=== PATIENT | male | born 1945 | race Caucasian/White ===

== ENCOUNTER 2021-12-22 11:15 | Outpatient (RCR) | payer MEDICARE, BC, SELFPAY | END 2022-06-10 15:54 | disposition home or self-care (01) | PROVIDERS: PCP Family Medicine; Visit Provider Physician Assistant Surgical | DX: M25.512 Pain in left shoulder (principal); Z51.89 Encounter for other specified aftercare | CPT/HCPCS: 97032; 97110 ==

== ENCOUNTER 2022-03-30 12:33 | Outpatient (CLI) | payer MEDICARE, BC, SELFPAY ==
[2022-03-30 22:32] LABS: Albumin* 4.7 g/dL (3.3-5.0); Chloride* 103 mmol/L (96-114); Potassium* 4.3 mmol/L (3.6-5.1); Sodium* 137 mmol/L (135-149)
[2022-03-30 22:35] LABS: Blood Urea Nitrogen* 17 mg/dL (7-30); Carbon Dioxide* 22 mmol/L (20-32); Estimated Glomerular Filt Rate 78 ml/min
[2022-03-30 22:36] LABS: Glucose* 99 mg/dL (60-115); Phosphorus* 3.6 mg/dL (2.5-4.5); Uric Acid* 4.9 mg/dL (2.2-8.4)
[2022-03-30 22:40] LABS: Albumin* 4.5 g/dL (3.3-5.0); Chloride* 103 mmol/L (96-114)
[2022-03-30 22:41] LABS: Potassium* 4.3 mmol/L (3.6-5.1); Sodium* 138 mmol/L (135-149)
[2022-03-30 22:43] LABS: Carbon Dioxide* 27 mmol/L (20-32); Cholesterol* 209 mg/dL (90-199); Creatinine* 0.9 mg/dL (0.5-1.5); Estimated Glomerular Filt Rate 89 ml/min; Total Protein* 7.4 g/dL (6.0-8.3)
[2022-03-30 22:44] LABS: Alanine Aminotransferase* 26 U/L (4-50); Alkaline Phosphatase* 63 U/L (40-150); Aspartate Amino Transferase* 39 U/L (12-35); Blood Urea Nitrogen* 18 mg/dL (7-30); Calcium* 9.6 mg/dL (8.4-10.6); Glucose* 98 mg/dL (60-115); Triglycerides* 121 mg/dL (40-149)
[2022-03-30 22:45] LABS: HDL Cholesterol* 52 mg/dL (>=40); LDL Cholesterol Calculated 133 mg/dL (<100)
[2022-03-30 23:15] LABS: PSA Screen* 0.38 ng/mL (0.10-4.00)
[2022-03-31 00:20] LABS: Creatinine Urine 211.3 mg/dL
[2022-03-31 00:23] LABS: Microalbumin Creatinine Ratio 0 mg/g (0-30); Microalbumin Urine 1 mg/dL
[2022-03-31 04:23] LABS: PTH Intact* 41 pg/mL (15-65)
== END 2022-03-30 12:34 | disposition home or self-care (01) ==
PROVIDERS: Internal Medicine Nephrology; PCP Family Medicine; Visit Provider Family Medicine
DX: Z00.00 Encounter for general adult medical examination without abnormal findings (principal); E03.8 Other specified hypothyroidism; E78.5 Hyperlipidemia, unspecified; N20.9 Urinary calculus, unspecified; Z12.5 Encounter for screening for malignant neoplasm of prostate
CPT/HCPCS: 80053; 80061; 80069; 82043; 82310; 82570; 83970; 84153; 84443; 84550; 87086

== ENCOUNTER 2024-01-28 16:44 | Outpatient (CLI) | payer MEDICARE, BC, SELFPAY | END 2024-01-28 16:45 | disposition home or self-care (01) | LOC: NFLDREF 01-30 13:00 | PROVIDERS: PCP Family Medicine; Referring Provider Family Medicine; Visit Provider Nurse Practitioner Family | DX: R10.9 Unspecified abdominal pain (principal) | CPT/HCPCS: 87086 ==

== ENCOUNTER 2024-02-29 07:30 | Outpatient (CLI) | payer MEDICARE, BC, SELFPAY ==
--- OUTSIDE RECORDS SUMMARY | 2024-03-08 07:26 | XMS_ITS | Continuity of Care Document ---
Author Name [facility] Organization [facility] Care Team Providers Care Feed Mill Tender Name Role Phone [facility] Unavailable Unavailable Problems Combined list of problems from Department of Defense and Veterans Affairs facilities. It does not include entries that were removed or entered in error. Problem Status Onset Date Problem Type Date of Resolution Comments Source Exposure to potentially hazardous substance ([facility] [id number]) Active 07/21/19 24 Condition Jul 21, 2023 Entered By: MARTINEZ HERNANDEZ Comment: [facility] MAT[employer]DE Documentation Initiative [facility] Alzheimer's disease Active Condition [facility] Benign Prostatic Hypertrophy without Outflow Obstruction ([facility] [id number]) Active Condition [facility] Dementia Active Condition [facility] History of calculus of kidney Active Condition [facility] Hyperlipidemia ([facility] [id number]) [facility] Low back pain [facility] Past history Active Condition Jul 30, 2021 Entered By: ADAN PHAN Comment: No smoking; FHx-pacemakersM ar 2021 Entered By: ADAN PHAN Comment: Currently work on overseas humanitarian aid in [facility] Scoliosis Active Condition [facility] Solitary nodule of lung Active Condition Jul 31, 2021 Entered By: ADAN PHAN Comment: found on coronary CT; doesn't smoke; 4mm nodule near L major fissure -> pt advised to talk to community PCP for f/u 07/2021 [facility] Diagnosis: ICD-10-CM F03.A4 Unspecified dementia, mild, with anxiety Active Diagnosis [facility] Diagnosis: ICD-10-CM Z71.84 Encounter for health counseling related to travel Active Diagnosis [facility] [place] [facility] Diagnosis: ICD-10-CM H93.13 Tinnitus, bilateral Active Diagnosis [facility] Diagnosis: ICD-10-CM E78.5 Hyperlipidemia, unspecified Active Diagnosis [facility] Diagnosis: ICD-10-CM H25.9 Unspecified age-related cataract Active Diagnosis [facility] Diagnosis: ICD-10-CM H90.3 Sensorineural hearing loss, bilateral Active Diagnosis [facility] Diagnosis: ICD-10-CM G30.9 Alzheimer's disease, unspecified Active Diagnosis [facility] Diagnosis: ICD-10-CM K30 Functional dyspepsia Active Diagnosis [facility] Diagnosis: ICD-10-CM H25.13 Age-related nuclear cataract, bilateral Active Diagnosis [facility] Diagnosis: ICD-10-CM Z23 Encounter for immunization Active Diagnosis [facility] Diagnosis: ICD-10-CM R42 Dizziness and giddiness Active Diagnosis [facility] Diagnosis: ICD-10-CM F03.90 Unsp dementia, unsp severity, without beh/psych/mood/an x Active Diagnosis [facility] Diagnosis: ICD-10-CM Z00.8 Encounter for other general examination Active Diagnosis [facility] Diagnosis: ICD-10-CM Z71.89 Other specified counseling Active Diagnosis [facility] Diagnosis: ICD-10-CM M54.59 Other low back pain Active Diagnosis [facility] Diagnosis: ICD-10-CM M25.512 Pain in left shoulder Active Diagnosis [facility] Diagnosis: ICD-10-CM H61.893 Other specified disorders of external ear, bilateral Active Diagnosis [facility] Medications Combined list of outpatient medications from Department of Defense and [facility] Affairs facilities.Medications provided include 1) outpatient medications from the last 15 months, and 2) patient-reported medications. Medication Details Route Status Patient Instructions Prescription Expires Prescription Number Last Dispense Date Ordering Provider Order Date Order Qty Source ASPIRIN 81MG TAB,EC TAKE ONE TABLET BY MOUTH EVERY DAY ORAL ACTIVE ADAN PHAN 2021 [facility] AZITHROMYCI N 250MG TAB TAKE TWO TABLETS BY MOUTH EVERY DAY NEEDED TAKE FOR SEVERE DIARRHEA WITH FEVERS, CHILLS, BODY ACHES OR LASTING MORE THAN 24 HOURS. STOP ONCE DIARRHEA STOPS. ORAL 12/15/2023 [id number] 4 LEEROY TUCKER SSE D 2023 6 [facility] AZITHROMYCI N 250MG TAB TAKE TWO TABLETS BY MOUTH EVERY DAY FOR SEVERE DIARRHEA ORAL 03/04/2023 [id number] 3 LEEROY TUCKER SSE D 2022 6 [facility] CARBOXYMETH YLCELLULOSE NA 0.5% (PF) SOLN,OPH,0. 4ML INSTILL 1 DROP IN BOTH EYES THREE TIMES A DAY FOR EYE IRRITATI ON OPHTHA LMIC ACTIVE 05/21/2024 [id number] 4 SARINA MORALES A 2023 90 [facility] COENZYME Q10 CAP/TAB TAKE BY MOUTH ORAL ACTIVE PARADISE, ADAN EVERETT 2023 [facility] DONEPEZIL HCL 10MG TAB TAKE ONE TABLET BY MOUTH EVERY DAY FOR ALZHEIME R DISEASE ORAL DISCONT INUED BY PROVIDE R 04/16/2024 [id number] 4 PARADISEADAN 2022 30 [facility] EZETIMIBE 10MG TAB TAKE ONE TABLET BY MOUTH EVERY DAY ORAL ACTIVE PARADISE, ADAN EVERETT 2021 [facility] FINASTERIDE 5MG TAB TAKE ONE TABLET BY MOUTH EVERY DAY ORAL ACTIVE PARADISE, ADANJACY EVERETT 2021 [facility] LIDOCAINE 5% PATCH APPLY 1 PATCH TOPICALL Y EVERY DAY FOR UP TO 12 HOURS FOR PAIN --MAXIMU M OF 12 HOURS ON IN A 24 HOUR PERIOD TOPICA L ACTIVE 07/29/2024 [id number] 4 PARADISE, ADAN EVERETT 2023 30 [facility] LIDOCAINE 5% PATCH APPLY 1 PATCH TOPICALL Y EVERY DAY FOR UP TO 12 HOURS FOR PAIN --MAXIMU M OF 12 HOURS ON IN A 24 HOUR PERIOD TOPICA L 03/04/2023 [id number] 3 LEEROY TUCKER D 2022 30 [facility] LOPERAMIDE HCL 2MG CAP TAKE 1-2 CAPSULES BY MOUTH FOUR TIMES A DAY NEEDED FOR MILD DIARRHEA - MAX 8 CAPSULES PER DAY ORAL 03/04/2023 [id number] 3 LEEROY TUCKER D 2022 120 [facility] MEMANTINE HCL 5MG TAB TAKE ONE TABLET BY MOUTH TWICE A DAY FOR ALZHEIME R DISEASE ([place]ACE [place]) ORAL ACTIVE 09/15/2024 [id number] 4 PARADISE, ADANJACY EVERETT 2023 180 [facility] MEMANTINE HCL 5MG TAB TAKE ONE TABLET BY MOUTH TWICE A DAY FOR ALZHEIME R DISEASE (REPLACE S [place]) ORAL DISCONT INUED (EDIT) 07/29/2024 [id number] 4 ADAN PHAN 2023 60 [facility] ROSUVASTATI N CA 40MG TAB TAKE ONE TABLET BY MOUTH EVERY DAY FOR CHOLESTE ROL ORAL ACTIVE 07/29/2024 [id number] 4 [place] EVERETT 2023 90 [facility] SCOPOLAMINE 0.33MG/24HR S PATCH APPLY 1 PATCH TOPICALL Y EVERY 3 DAYS NEEDED FOR MOTION SICKNESS TOPICA L 03/04/2023 [id number] 3 LEEROY TUCKER SSE D 2022 8 [facility] SERTRALINE HCL 25MG TAB TAKE ONE TABLET BY MOUTH EVERY DAY FOR MOOD ORAL DISCONT INUED 03/17/2024 [id number] EMILIE ADANJACY EVERETT 2022 45 [facility] Allergies, Adverse Reactions, Alerts Combined list of allergies from Department of Defense and Veterans Affairs facilities. It does not include entries that were removed or entered in error. Substance Category Reaction Severity Reaction type Status Date Reported Comments Source PISTACHIOS Propensity to adverse reactions to food (finding) active 1 [facility] TAMSULOSIN Propensity to adverse reactions to drug (finding) ANGIOEDEMA OF LIPS active 2 [facility] Immunizations Combined list of available immunizations from the Department of Defense and Veterans Affairs facilities. Immunization Series Date Given Administered By Site Reaction Lot Number CVX Code Drug Investor Relations Specialist Status Comments Source ZOSTER RECOMBINANT 2 2023 JESUS VENTURAENE LEFT DELTO ID [id number] 187 complet ed [id number] [facility] ZOSTER RECOMBINANT 1 2022 LORENZO VENTURA LEFT DELTO ID [id number] 187 complet ed [id number] [facility] COVID-19 (MODERNA), MRNA, LNP-S, PF, 50 MCG/0.5 ML (AGES 12+ YEARS) 10/05/ 2023 312 complet ed [facility] INFLUENZA, HIGH-DOSE, QUADRIVALENT 2022 TERESO AU L LEFT DELTO ID [id number] 197 complet ed [facility] IPV 2022 [place] [facility] RIGHT DELTO ID [id number] 10 complet ed [facility] TDAP 2022 [place] AU L LEFT DELTO ID [id number] 115 complet ed [facility] TYPHOID, VICPS 2022 TERES[place] AU L RIGHT DELTO ID [id number] 101 complet ed [facility] COVID-19 ([employer]), MRNA, LNP-S, BIVALENT BOOSTER, PF, 30 MCG/0.3 ML DOSE 1 2022 [place] RIGHT DELTO ID [id number] 300 complet ed [facility] INFLUENZA, HIGH-DOSE, QUADRIVALENT 2021 197 complet ed [facility] INFLUENZA, UNSPECIFIED FORMULATION 2021 88 complet ed [facility] COVID-19 ([employer]), MRNA, LNP-S, PF, 30 MCG/0.3 ML DOSE, DRHUV-SUCROSE (AGES 12+ YEARS) 1 2021 217 complet ed Lot#: [id number] Mfr: [employer], [employer] Expiratio n Date: 02/20/22 [facility] COVID-19 ([employer]), MRNA, LNP-S, PF, 30 MCG/0.3 ML DOSE 2020 208 complet ed [facility] COVID-19 ([employer]), MRNA, LNP-S, PF, 30 MCG/0.3 ML DOSE 3 2020 208 complet ed Lot#: [id number] Mfr: [employer], [employer] Expiratio n Date: 04/19/21 [facility] INFLUENZA, HIGH-DOSE, QUADRIVALENT 2020 197 complet ed [facility] INFLUENZA, UNSPECIFIED FORMULATION 2020 88 complet ed [facility] COVID-19 ([employer]), MRNA, LNP-S, PF, 30 MCG/0.3 ML DOSE 2 2020 208 complet ed PFR; [id number]; 1 [facility] COVID-19 (PFIZER), MRNA, LNP-S, PF, 30 MCG/0.3 ML DOSE 1 2020 208 complet ed PFR; [id number]; 1 [facility] INFLUENZA, HIGH-DOSE, QUADRIVALENT 2019 197 complet ed [facility] INFLUENZA, HIGH DOSE SEASONAL 2018 135 complet ed [facility] INFLUENZA, HIGH DOSE SEASONAL 2017 135 complet ed [facility] HEP B, ADULT 3 2017 43 complet ed [facility] INFLUENZA, HIGH DOSE SEASONAL 2016 135 complet ed [facility] TYPHOID, VICPS 2016 101 complet ed [facility] PNEUMOCOCCAL CONJUGATE PCV 13 2016 133 complet ed [facility] INFLUENZA, HIGH DOSE SEASONAL 2013 135 complet ed [facility] INFLUENZA, HIGH DOSE SEASONAL 2012 135 complet ed [facility] TD (ADULT), 5 LF TETANUS TOXOID, PRESERVATIVE FREE, ADSORBED 2012 113 complet ed [facility] TDAP 2012 115 complet ed per [facility] ZOSTER LIVE 2012 121 complet ed [facility] INFLUENZA, HIGH DOSE SEASONAL 2011 135 complet ed [facility] INFLUENZA, SEASONAL, INJECTABLE 2010 141 complet ed [facility] PNEUMOCOCCAL POLYSACCHARID E [id number] 2010 33 complet ed [facility] INFLUENZA, SEASONAL, INJECTABLE 2009 141 complet ed [facility] INFLUENZA, SEASONAL, INJECTABLE, PRESERVATIVE FREE 2009 140 complet ed [facility] NOVEL INFLUENZA-H1N 1-09, ALL FORMULATIONS 2009 128 complet ed [facility] TYPHOID, ORAL 2009 25 complet ed [facility] HEP B, ADULT 2 2007 43 complet ed [facility] INFLUENZA, SEASONAL, INJECTABLE 2007 141 complet ed [facility] INFLUENZA, SEASONAL, INJECTABLE 2006 141 complet ed [facility] HEP B, ADULT 2006 43 complet ed [facility] HEP A, ADULT 2 2006 52 complet ed [facility] HEP B, ADULT 1 2006 43 complet ed [facility] TDAP 2006 115 complet ed [facility] INFLUENZA, SEASONAL, INJECTABLE 2005 141 complet ed [facility] INFLUENZA, SEASONAL, INJECTABLE 2004 141 complet ed [facility] HEP A, ADULT 1 2003 52 complet ed [facility] TYPHOID, ORAL 2003 25 complet ed [facility] YELLOW FEVER 2003 37 complet ed [facility] INFLUENZA, SEASONAL, INJECTABLE 2002 141 complet ed [facility] TD (ADULT), 2 LF TETANUS TOXOID, PRESERVATIVE FREE, ADSORBED 2001 09 complet ed [facility] TD (ADULT), 2 LF TETANUS TOXOID, PRESERVATIVE FREE, ADSORBED 1990 09 complet ed [facility] Results Combined list of recent chemistry, hematology and other laboratory results from Department of Defense and Veterans Affairs, ranging from 15 months to all on record, depending upon the facility. Order Name Results Value Reference Range Date Interpretation Specimen Comments Source CBC LEUKOCYTES [#/VOLUME] IN BLOOD BY AUTOMATED COUNT 4.86 10*3/uL 4.0 - 11.0 08/26 Specimen Type: BLOOD No comment entered. Ordering Provider: ALAN PHAN Report Released Date/Time: Aug 24, 2022 08:45 PM Reporting Lab: [facility] [address] Performing Lab: [facility] [address] [facility] CBC ERYTHROCYT ES [#/VOLUME] IN BLOOD BY AUTOMATED COUNT 4.97 10*6/uL 4.6 - 6.2 08/26 Specimen Type: BLOOD No comment entered. Ordering Provider: ALAN PHAN Report Released Date/Time: Aug 24, 2022 08:45 PM Reporting Lab: [facility] [address] Performing Lab: [facility] [address] [place] [facility] CBC HEMOGLOBIN [MASS/VOLU ME] IN BLOOD 15.3 g/dL 13.5 - 17.9 08/26 Specimen Type: BLOOD No comment entered. Ordering Provider: ALAN PHAN Report Released Date/Time: Aug 24, 2022 08:45 PM Reporting Lab: [facility] [address] Performing Lab: [facility] [address] [place] [facility] CBC HEMATOCRIT [VOLUME FRACTION] OF BLOOD BY AUTOMATED COUNT 43.8 41 - 54 08/26 Specimen Type: BLOOD No comment entered. Ordering Provider: ALAN PHAN Report Released Date/Time: Aug 24, 2022 08:45 PM Reporting Lab: [facility] [phone] Performing Lab: [facility] [phone] [place] [facility] CBC MCV [ENTITIC VOLUME] BY AUTOMATED COUNT 88.1 fL 80 - 100 08/26 Specimen Type: BLOOD No comment entered. Ordering Provider: ALAN PHAN Report Released Date/Time: Aug 24, 2022 08:45 PM Reporting Lab: [facility] [address] Performing Lab: [facility] [address] [place] [facility] CBC MCH [ENTITIC MASS] BY AUTOMATED COUNT 30.8 pg 27 - 33 08/26 Specimen Type: BLOOD No comment entered. Ordering Provider: ALAN PHAN Report Released Date/Time: Aug 24, 2022 08:45 PM Reporting Lab: [facility] [address] Performing Lab: [facility] [address] [place] [facility] CBC MCHC [MASS/VOLU ME] BY AUTOMATED COUNT 34.9 g/dL 32.0 - 37.5 08/26 Specimen Type: BLOOD No comment entered. Ordering Provider: ALAN PHAN Report Released Date/Time: Aug 24, 2022 08:45 PM Reporting Lab: [facility] [address] Performing Lab: [facility] [address] [place] [facility] CBC PLATELETS [#/VOLUME] IN BLOOD BY AUTOMATED COUNT 184 10*3/uL 150 - 400 08/26 Specimen Type: BLOOD No comment entered. Ordering Provider: ALAN PHAN Report Released Date/Time: Aug 24, 2022 08:45 PM Reporting Lab: [facility] [address] Performing Lab: [facility] [address] [place] [facility] CBC PLATELET MEAN VOLUME [ENTITIC VOLUME] IN BLOOD BY AUTOMATED COUNT 10.0 fL 7.4 - 10.4 08/26 Specimen Type: BLOOD No comment entered. Ordering Provider: ALAN PHAN Report Released Date/Time: Aug 24, 2022 08:45 PM Reporting Lab: [facility] [address] Performing Lab: [facility] [address] [place] [facility] CBC ERYTHROCYT E DISTRIBUTI ON WIDTH [RATIO] BY AUTOMATED COUNT 13.0 11.5 - 14.5 08/26 Specimen Type: BLOOD No comment entered. Ordering Provider: ALAN PHAN Report Released Date/Time: Aug 24, 2022 08:45 PM Reporting Lab: [facility] [address] Performing Lab: [facility] [address] [place] [facility] CBC PLATELETS RETICULATE D/100 PLATELETS IN BLOOD BY AUTOMATED COUNT 3.6 0 - 10 08/26 Specimen Type: BLOOD No comment entered. Ordering Provider: ALAN PHAN Report Released Date/Time: Aug 24, 2022 08:45 PM Reporting Lab: [facility] [address] Performing Lab: [facility] [address] [place] [facility] BASIC METABOLI C PANEL+MG CREATININE [MASS/VOLU ME] IN SERUM OR PLASMA 1.0 mg/dL 0.7 - 1.2 08/26 Specimen Type: PLASMA No comment entered. Ordering Provider: ALAN PHAN Report Released Date/Time: Aug 24, 2022 08:45 PM Reporting Lab: [facility] [address] Performing Lab: [facility] [address] [place] [facility] BASIC METABOLI C PANEL+MG UREA NITROGEN [MASS/VOLU ME] IN SERUM OR PLASMA 15 mg/dL 8 - 26 08/26 Specimen Type: PLASMA No comment entered. Ordering Provider: ALAN PHAN Report Released Date/Time: Aug 24, 2022 08:45 PM Reporting Lab: [facility] [address] Performing Lab: [facility] [address] [place] [facility] BASIC METABOLI C PANEL+MG GLUCOSE [MASS/VOLU ME] IN SERUM OR PLASMA 101 mg/dL 70 - 100 08/26 H Specimen Type: PLASMA No comment entered. Ordering Provider: ALAN PHAN Report Released Date/Time: Aug 24, 2022 08:45 PM Reporting Lab: [facility] [address] Performing Lab: [facility] [address] [place] [facility] BASIC METABOLI C PANEL+MG SODIUM [MOLES/VOL UME] IN SERUM OR PLASMA 139 mmol/L 136 - 145 08/26 Specimen Type: PLASMA No comment entered. Ordering Provider: ALAN PHAN Report Released Date/Time: Aug 24, 2022 08:45 PM Reporting Lab: [facility] [address] Performing Lab: [facility] [address] [place] [facility] BASIC METABOLI C PANEL+MG POTASSIUM [MOLES/VOL UME] IN SERUM OR PLASMA 3.8 mmol/L 3.5 - 5.1 08/26 Specimen Type: PLASMA No comment entered. Ordering Provider: ALAN PHAN Report Released Date/Time: Aug 24, 2022 08:45 PM Reporting Lab: [facility] [address] Performing Lab: [facility] [address] [place] [facility] BASIC METABOLI C PANEL+MG CHLORIDE [MOLES/VOL UME] IN SERUM OR PLASMA 104 mmol/L 98 - 107 08/26 Specimen Type: PLASMA No comment entered. Ordering Provider: ALAN PHAN Report Released Date/Time: Aug 24, 2022 08:45 PM Reporting Lab: [facility] [address] Performing Lab: [facility] [address] [place] [facility] BASIC METABOLI C PANEL+MG CARBON DIOXIDE, TOTAL [MOLES/VOL UME] IN SERUM OR PLASMA 28 mmol/L 22 - 29 08/26 Specimen Type: PLASMA No comment entered. Ordering Provider: ALAN PHAN Report Released Date/Time: Aug 24, 2022 08:45 PM Reporting Lab: [facility] [address] Performing Lab: [facility] [address] [place] [facility] BASIC METABOLI C PANEL+MG CALCIUM [MASS/VOLU ME] IN SERUM OR PLASMA 9.3 mg/dL 8.4 - 10.2 08/26 Specimen Type: PLASMA No comment entered. Ordering Provider: ALAN PHAN Report Released Date/Time: Aug 24, 2022 08:45 PM Reporting Lab: [facility] [address] Performing Lab: [facility] [address] [place] [facility] BASIC METABOLI C PANEL+MG MAGNESIUM [MASS/VOLU ME] IN SERUM OR PLASMA 1.9 mg/dL 1.6 - 2.6 08/26 Specimen Type: PLASMA No comment entered. Ordering Provider: ALAN PHAN Report Released Date/Time: Aug 24, 2022 08:45 PM Reporting Lab: [facility] [address] Performing Lab: [facility] [address] [place] [facility] BASIC METABOLI C PANEL+MG ANION GAP IN SERUM OR PLASMA 7 mmol/L 5 - 15 08/26 Specimen Type: PLASMA No comment entered. Ordering Provider: ALAN PHAN Report Released Date/Time: Aug 24, 2022 08:45 PM Reporting Lab: [facility] [address] Performing Lab: [facility] [address] [place] [facility] BASIC METABOLI C PANEL+MG GLOMERULAR FILTRATION RATE/1.73 SQ M.PREDICTE D [VOLUME RATE/AREA] IN SERUM, PLASMA OR BLOOD BY CREATININE -BASED FORMULA (CKD-EPI 2020) 78 60 08/26 Specimen Type: PLASMA No comment entered. Ordering Provider: ALAN PHAN Report Released Date/Time: Aug 24, 2022 08:45 PM Reporting Lab: [facility] [address] Performing Lab: [facility] [phone] [place] [facility] AST/SGOT ASPARTATE AMINOTRANS FERASE [ENZYMATIC ACTIVITY/V OLUME] IN SERUM OR PLASMA 25 U/L <34 - 34 08/26 Specimen Type: PLASMA No comment entered. Ordering Provider: ALAN PHAN Report Released Date/Time: Aug 24, 2022 08:45 PM Reporting Lab: [facility] [address] Performing Lab: [facility] [address] [place] [facility] ALT/SGPT ALANINE AMINOTRANS FERASE [ENZYMATIC ACTIVITY/V OLUME] IN SERUM OR PLASMA 17 U/L <55 - 55 08/26 Specimen Type: PLASMA No comment entered. Ordering Provider: ALAN PHAN Report Released Date/Time: Aug 24, 2022 08:45 PM Reporting Lab: [facility] [address] Performing Lab: [facility] [address] [place] [facility] LIPID PANEL,NO N-FASTIN G CHOLESTERO L [MASS/VOLU ME] IN SERUM OR PLASMA 252 mg/dL <199 - 199 08/26 H Specimen Type: PLASMA No comment entered. Ordering Provider: ALAN PHAN Report Released Date/Time: Aug 24, 2022 08:45 PM Reporting Lab: [facility] [address] Performing Lab: [facility] [address] [place] [facility] LIPID PANEL,NO N-FASTIN G CHOLESTERO L IN HDL [MASS/VOLU ME] IN SERUM OR PLASMA 52 mg/dL 40 08/26 Specimen Type: PLASMA No comment entered. Ordering Provider: ALAN PHAN Report Released Date/Time: Aug 24, 2022 08:45 PM Reporting Lab: [facility] [phone] Performing Lab: [facility] [address] [place] [facility] LIPID PANEL,NO N-FASTIN G CHOLESTERO L IN LDL [MASS/VOLU ME] IN SERUM OR PLASMA BY CALCULATIO N 179 mg/dL <99 - 99 08/26 H Specimen Type: PLASMA No comment entered. Ordering Provider: ALAN PHAN Report Released Date/Time: Aug 24, 2022 08:45 PM Reporting Lab: [facility] [address] Performing Lab: [facility] [address] [place] [facility] LIPID PANEL,NO N-FASTIN G CHOLESTERO L IN VLDL [MASS/VOLU ME] IN SERUM OR PLASMA BY CALCULATIO N 21 mg/dL <29 - 29 08/26 Specimen Type: PLASMA No comment entered. Ordering Provider: ALAN PHAN Report Released Date/Time: Aug 24, 2022 08:45 PM Reporting Lab: [facility] [address] Performing Lab: [facility] [address] [place] [facility] LIPID PANEL,NO N-FASTIN G CHOLESTERO L NON HDL [MASS/VOLU ME] IN SERUM OR PLASMA 200 mg/dL <129 - 129 08/26 H Specimen Type: PLASMA No comment entered. Ordering Provider: ALAN PHAN Report Released Date/Time: Aug 24, 2022 08:45 PM Reporting Lab: [facility] [address] Performing Lab: [facility] [address] [place] [facility] LIPID PANEL,NO N-FASTIN G TRIGLYCERI DE [MASS/VOLU ME] IN SERUM OR PLASMA 103 mg/dL <149 - 149 08/26 Specimen Type: PLASMA No comment entered. Ordering Provider: ALAN PHAN Report Released Date/Time: Aug 24, 2022 08:45 PM Reporting Lab: [facility] [address] Performing Lab: [facility] [address] [place] [facility] HEMOGLOB IN A1C HEMOGLOBIN A1C/HEMOGL OBIN.TOTAL IN BLOOD 5.6 4.0 - 6.0 08/26 Specimen Type: BLOOD Comment: Values obtained from A1C measurement s can vary. For typical A1C assays, a reported value of 7.0 could actually be between 6.7 and 7.3 if measured by a reference method. A reported value of 9.0 could actually be between 8.7 and 9.3. Ref: http://www. ngsp.org/[place] Pdata.asp Ordering Provider: ALAN PHAN Report Released Date/Time: Aug 27, 2023 11:46 AM Reporting Lab: [facility] [address] Performing Lab: [facility] [address] [place] [facility] POC ABG/LACT ATE PH OF VENOUS BLOOD 7.378 7.31 - 7.41 06/02 Specimen Type: VENOUS BLOOD No comment entered. Ordering Provider: LEANN HAILE Report Released Date/Time: Jun 02, 2023 05:59 PM Reporting Lab: [facility] [address] Performing Lab: [facility] [address] [place] [facility] POC ABG/LACT ATE CARBON DIOXIDE [PARTIAL PRESSURE] IN VENOUS BLOOD 49.8 mm[Hg] 41.00 - 51.00 06/02 Specimen Type: VENOUS BLOOD No comment entered. Ordering Provider: LEANN HAILE Report Released Date/Time: Jun 02, 2023 05:59 PM Reporting Lab: [facility] [id number] Performing Lab: [facility] [id number] [place] [facility] POC ABG/LACT ATE OXYGEN [PARTIAL PRESSURE] IN VENOUS BLOOD 19 mm[Hg] 35.0 - 40.0 06/02 L Specimen Type: VENOUS BLOOD No comment entered. Ordering Provider: LEANN HAILE Report Released Date/Time: Jun 02, 2023 05:59 PM Reporting Lab: [facility] [address] Performing Lab: [facility] [address] [place] [facility] POC ABG/LACT ATE CARBON DIOXIDE, TOTAL [MOLES/VOL UME] IN VENOUS BLOOD 31 mmol/L 24.0 - 29.0 06/02 H Specimen Type: VENOUS BLOOD No comment entered. Ordering Provider: ELANN HAILE Report Released Date/Time: Jun 02, 2023 05:59 PM Reporting Lab: [facility] [address] Performing Lab: [facility] [address] [place] [facility] POC ABG/LACT ATE BICARBONAT E [MOLES/VOL UME] IN VENOUS BLOOD 29.3 mmol/L 23.0 - 28.0 06/02 H Specimen Type: VENOUS BLOOD No comment entered. Ordering Provider: LEANN HAILE Report Released Date/Time: Jun 02, 2023 05:59 PM Reporting Lab: [facility] [address] Performing Lab: [facility] [address] [place] [facility] POC ABG/LACT ATE BASE EXCESS IN VENOUS BLOOD BY CALCULATIO N 4 mmol/L - 2 06/02 H Specimen Type: VENOUS BLOOD No comment entered. Ordering Provider: LEANN HAILE Report Released Date/Time: Jun 02, 2023 05:59 PM Reporting Lab: [facility] [address] Performing Lab: [facility] [address] [place] [facility] POC ABG/LACT ATE FRACTIONAL OXYHEMOGLO BIN IN VENOUS BLOOD 28 70 - 75 06/02 L Specimen Type: VENOUS BLOOD No comment entered. Ordering Provider: LEANN HAILE Report Released Date/Time: Jun 02, 2023 05:59 PM Reporting Lab: [facility] [address] Performing Lab: [facility] [address] [place] [facility] POC ABG/LACT ATE LACTATE [MOLES/VOL UME] IN VENOUS BLOOD <1.6mmol /L 0.90 - 1.70 06/02 Specimen Type: VENOUS BLOOD No comment entered. Ordering Provider: LEANN HAILE Report Released Date/Time: Jun 02, 2023 05:59 PM Reporting Lab: [facility] [address] Performing Lab: [facility] [address] [place] [facility] URINALYS IS COLOR OF URINE LIGHT-YE LLOW 06/02 Specimen Type: URINE No comment entered. Ordering Provider: LEANN HAILE Report Released Date/Time: Jun 02, 2023 05:33 PM Reporting Lab: [facility] [address] Performing Lab: [facility] [address] [place] [facility] URINALYS IS SPECIFIC GRAVITY OF URINE 1.025 1.003 - 1.035 06/02 Specimen Type: URINE No comment entered. Ordering Provider: LEANN HAILE Report Released Date/Time: Jun 02, 2023 05:33 PM Reporting Lab: [facility] [address] Performing Lab: [facility] [address] [place] [facility] URINALYS IS BILIRUBIN. TOTAL [PRESENCE] IN URINE BY TEST STRIP NEGATIVE 06/02 Specimen Type: URINE No comment entered. Ordering Provider: LEANN HAILE Report Released Date/Time: Jun 02, 2023 05:33 PM Reporting Lab: [facility] [address] Performing Lab: [facility] [address] [place] [facility] URINALYS IS KETONES [MASS/VOLU ME] IN URINE BY TEST STRIP NEGATIVE 06/02 Specimen Type: URINE No comment entered. Ordering Provider: LEANN HAILE Report Released Date/Time: Jun 02, 2023 05:33 PM Reporting Lab: [facility] [address] Performing Lab: [facility] [address] [place] [facility] URINALYS IS GLUCOSE [MASS/VOLU ME] IN URINE BY TEST STRIP NEGATIVE mg/dL 06/02 Specimen Type: URINE No comment entered. Ordering Provider: LEANN HAILE Report Released Date/Time: Jun 02, 2023 05:33 PM Reporting Lab: [facility] [address] Performing Lab: [facility] [address] [place] [facility] URINALYS IS PROTEIN [MASS/VOLU ME] IN URINE BY TEST STRIP NEGATIVE mg/dL 06/02 Specimen Type: URINE No comment entered. Ordering Provider: LEANN HAILE Report Released Date/Time: Jun 02, 2023 05:33 PM Reporting Lab: [facility] [address] Performing Lab: [facility] [address] [place] [facility] URINALYS IS PH OF URINE BY TEST STRIP 6.0 5.0 - 8.0 06/02 Specimen Type: URINE No comment entered. Ordering Provider: LEANN HAILE Report Released Date/Time: Jun 02, 2023 05:33 PM Reporting Lab: [facility] [address] Performing Lab: [facility] [address] [place] [facility] URINALYS IS LEUKOCYTES [#/AREA] IN URINE SEDIMENT BY MICROSCOPY HIGH POWER FIELD 1 /[HPF] 0 - 7 06/02 Specimen Type: URINE No comment entered. Ordering Provider: LEANN HAILE Report Released Date/Time: Jun 02, 2023 05:33 PM Reporting Lab: [facility] [address] Performing Lab: [facility] [address] [place] [facility] URINALYS IS BACTERIA [PRESENCE] IN URINE SEDIMENT BY LIGHT MICROSCOPY NONE SEEN 06/02 Specimen Type: URINE No comment entered. Ordering Provider: LEANN HAILE Report Released Date/Time: Jun 02, 2023 05:33 PM Reporting Lab: [facility] [address] Performing Lab: [facility] [address] [place] [facility] URINALYS IS ERYTHROCYT ES [#/AREA] IN URINE SEDIMENT BY MICROSCOPY HIGH POWER FIELD 3 /[HPF] 0 - 3 06/02 Specimen Type: URINE No comment entered. Ordering Provider: LEANN HAILE Report Released Date/Time: Jun 02, 2023 05:33 PM Reporting Lab: [facility] [address] Performing Lab: [facility] [address] [place] [facility] URINALYS IS APPEARANCE OF URINE CLEAR 06/02 Specimen Type: URINE No comment entered. Ordering Provider: LEANN HAILE Report Released Date/Time: Jun 02, 2023 05:33 PM Reporting Lab: [facility] [address] Performing Lab: [facility] [address] [facility] URINALYS IS EPITHELIAL CELLS.SQUA MOUS [#/AREA] IN URINE SEDIMENT BY MICROSCOPY HIGH POWER FIELD NONE SEEN/[HP F] 06/02 Specimen Type: URINE No comment entered. Ordering Provider: LEANN HAILE Report Released Date/Time: Jun 02, 2023 05:33 PM Reporting Lab: [facility] [address] Performing Lab: [facility] [address] [facility] URINALYS IS HEMOGLOBIN [PRESENCE] IN URINE BY TEST STRIP NEGATIVE 06/02 Specimen Type: URINE No comment entered. Ordering Provider: LEANN HAILE Report Released Date/Time: Jun 02, 2023 05:33 PM Reporting Lab: [facility] [address] Performing Lab: [facility] [address] [facility] URINALYS IS NITRITE [PRESENCE] IN URINE BY TEST STRIP NEGATIVE 06/02 Specimen Type: URINE No comment entered. Ordering Provider: LEANN HAILE Report Released Date/Time: Jun 02, 2023 05:33 PM Reporting Lab: [facility] [address] Performing Lab: [facility] [address] [facility] URINALYS IS LEUKOCYTE ESTERASE [PRESENCE] IN URINE BY TEST STRIP NEGATIVE 06/02 Specimen Type: URINE No comment entered. Ordering Provider: LEANN HAILE Report Released Date/Time: Jun 02, 2023 05:33 PM Reporting Lab: [facility] [address] Performing Lab: [facility] [address] [facility] CBC & DIFF LEUKOCYTES [#/VOLUME] IN BLOOD BY AUTOMATED COUNT 5.69 10*3/uL 4.0 - 11.0 06/02 Specimen Type: BLOOD Comment: Automated Differentia l Performed Ordering Provider: LEANN HAILE Report Released Date/Time: Jun 02, 2023 05:33 PM Reporting Lab: [facility] [address] Performing Lab: [facility] [address] [place] [facility] CBC & DIFF ERYTHROCYT ES [#/VOLUME] IN BLOOD BY AUTOMATED COUNT 4.91 10*6/uL 4.6 - 6.2 06/02 Specimen Type: BLOOD Comment: Automated Differentia l Performed Ordering Provider: LEANN HAILE Report Released Date/Time: Jun 02, 2023 05:33 PM Reporting Lab: [facility] [address] Performing Lab: [facility] [address] [place] [facility] CBC & DIFF HEMOGLOBIN [MASS/VOLU ME] IN BLOOD 14.9 g/dL 13.5 - 17.9 06/02 Specimen Type: BLOOD Comment: Automated Differentia l Performed Ordering Provider: LEANN HAILE Report Released Date/Time: Jun 02, 2023 05:33 PM Reporting Lab: [facility] [address] Performing Lab: [facility] [address] [place] [facility] CBC & DIFF HEMATOCRIT [VOLUME FRACTION] OF BLOOD BY AUTOMATED COUNT 43.3 41 - 54 06/02 Specimen Type: BLOOD Comment: Automated Differentia l Performed Ordering Provider: LEANN HAILE Report Released Date/Time: Jun 02, 2023 05:33 PM Reporting Lab: [facility] [address] Performing Lab: [facility] [address] [place] [facility] CBC & DIFF MCV [ENTITIC VOLUME] BY AUTOMATED COUNT 88.2 fL 80 - 100 06/02 Specimen Type: BLOOD Comment: Automated Differentia l Performed Ordering Provider: LEANN HAILE Report Released Date/Time: Jun 02, 2023 05:33 PM Reporting Lab: [facility] [address] Performing Lab: [facility] [address] [place] [facility] CBC & DIFF MCH [ENTITIC MASS] BY AUTOMATED COUNT 30.3 pg 27 - 33 06/02 Specimen Type: BLOOD Comment: Automated Differentia l Performed Ordering Provider: LEANN HAILE Report Released Date/Time: Jun 02, 2023 05:33 PM Reporting Lab: [facility] [address] Performing Lab: [facility] [address] [place] [facility] CBC & DIFF MCHC [MASS/VOLU ME] BY AUTOMATED COUNT 34.4 g/dL 32.0 - 37.5 06/02 Specimen Type: BLOOD Comment: Automated Differentia l Performed Ordering Provider: LEANN HAILE Report Released Date/Time: Jun 02, 2023 05:33 PM Reporting Lab: [facility] [address] Performing Lab: [facility] [address] [place] [facility] CBC & DIFF PLATELETS [#/VOLUME] IN BLOOD BY AUTOMATED COUNT 258 10*3/uL 150 - 400 06/02 Specimen Type: BLOOD Comment: Automated Differentia l Performed Ordering Provider: LEANN HAILE Report Released Date/Time: Jun 02, 2023 05:33 PM Reporting Lab: [facility] [address] Performing Lab: [facility] [address] [place] [facility] CBC & DIFF PLATELET MEAN VOLUME [ENTITIC VOLUME] IN BLOOD BY AUTOMATED COUNT 9.6 fL 7.4 - 10.4 06/02 Specimen Type: BLOOD Comment: Automated Differentia l Performed Ordering Provider: LEANN HAILE Report Released Date/Time: Jun 02, 2023 05:33 PM Reporting Lab: [facility] [address] Performing Lab: [facility] [address] [place] [facility] CBC & DIFF NEUTROPHIL S/100 LEUKOCYTES IN BLOOD BY MANUAL COUNT 59.3 40.0 - 80.0 06/02 Specimen Type: BLOOD Comment: Automated Differentia l Performed Ordering Provider: LEANN HAILE Report Released Date/Time: Jun 02, 2023 05:33 PM Reporting Lab: [facility] [address] Performing Lab: [facility] [address] [place] [facility] CBC & DIFF LYMPHOCYTE S/100 LEUKOCYTES IN BLOOD BY MANUAL COUNT 29.3 15.0 - 45.0 06/02 Specimen Type: BLOOD Comment: Automated Differentia l Performed Ordering Provider: LEANN HAILE Report Released Date/Time: Jun 02, 2023 05:33 PM Reporting Lab: [facility] [address] Performing Lab: [facility] [address] [place] [facility] CBC & DIFF MONOCYTES/ 100 LEUKOCYTES IN BLOOD BY AUTOMATED COUNT 8.3 2.0 - 12.0 06/02 Specimen Type: BLOOD Comment: Automated Differentia l Performed Ordering Provider: LEANN HAILE Report Released Date/Time: Jun 02, 2023 05:33 PM Reporting Lab: [facility] [address] Performing Lab: [facility] [address] [place] [facility] CBC & DIFF EOSINOPHIL S/100 LEUKOCYTES IN BLOOD BY AUTOMATED COUNT 1.8 0.0 - 6.0 06/02 Specimen Type: BLOOD Comment: Automated Differentia l Performed Ordering Provider: LEANN HAILE Report Released Date/Time: Jun 02, 2023 05:33 PM Reporting Lab: [facility] [address] Performing Lab: [facility] [address] [place] [facility] CBC & DIFF BASOPHILS/ 100 LEUKOCYTES IN BLOOD BY MANUAL COUNT 0.9 0.0 - 2.0 06/02 Specimen Type: BLOOD Comment: Automated Differentia l Performed Ordering Provider: LEANN HAILE Report Released Date/Time: Jun 02, 2023 05:33 PM Reporting Lab: [facility] [address] Performing Lab: [facility] [address] [place] [facility] CBC & DIFF ERYTHROCYT E DISTRIBUTI ON WIDTH [RATIO] BY AUTOMATED COUNT 12.7 11.5 - 14.5 06/02 Specimen Type: BLOOD Comment: Automated Differentia l Performed Ordering Provider: LEANN HAILE Report Released Date/Time: Jun 02, 2023 05:33 PM Reporting Lab: [facility] [address] Performing Lab: [facility] [address] [place] [facility] CBC & DIFF LYMPHOCYTE S [#/VOLUME] IN BLOOD BY AUTOMATED COUNT 1.67 10*3/uL 1.0 - 4.0 06/02 Specimen Type: BLOOD Comment: Automated Differentia l Performed Ordering Provider: LEANN HAILE Report Released Date/Time: Jun 02, 2023 05:33 PM Reporting Lab: [facility] [address] Performing Lab: [facility] [address] [place] [facility] CBC & DIFF MONOCYTES [#/VOLUME] IN BLOOD BY AUTOMATED COUNT 0.47 10*3/uL 0.1 - 1.0 06/02 Specimen Type: BLOOD Comment: Automated Differentia l Performed Ordering Provider: LEANN HAILE Report Released Date/Time: Jun 02, 2023 05:33 PM Reporting Lab: [facility] [address] Performing Lab: [facility] [address] [place] [facility] CBC & DIFF NEUTROPHIL S [#/VOLUME] IN BLOOD BY AUTOMATED COUNT 3.38 10*3/uL 2.0 - 7.7 06/02 Specimen Type: BLOOD Comment: Automated Differentia l Performed Ordering Provider: LEANN HAILE Report Released Date/Time: Jun 02, 2023 05:33 PM Reporting Lab: [facility] [address] Performing Lab: [facility] [address] [place] [facility] CBC & DIFF EOSINOPHIL S [#/VOLUME] IN BLOOD BY AUTOMATED COUNT 0.10 10*3/uL 0 - 0.5 06/02 Specimen Type: BLOOD Comment: Automated Differentia l Performed Ordering Provider: LEANN HAILE Report Released Date/Time: Jun 02, 2023 05:33 PM Reporting Lab: [facility] [address] Performing Lab: [facility] [address] [place] [facility] CBC & DIFF BASOPHILS [#/VOLUME] IN BLOOD BY AUTOMATED COUNT 0.05 10*3/uL 0 - 0.2 06/02 Specimen Type: BLOOD Comment: Automated Differentia l Performed Ordering Provider: LEANN HAILE Report Released Date/Time: Jun 02, 2023 05:33 PM Reporting Lab: [facility] [address] Performing Lab: [facility] [address] [place] [facility] CBC & DIFF IG(META,MY LUPE,PRO) 0.4 06/02 Specimen Type: BLOOD Comment: Automated Differentia l Performed Ordering Provider: LEANN HAILE Report Released Date/Time: Jun 02, 2023 05:33 PM Reporting Lab: [facility] [address] Performing Lab: [facility] [address] [place] [facility] CBC & DIFF IMMATURE GRANULOCYT ES [PRESENCE] IN BLOOD BY AUTOMATED COUNT 0.02 10*3/uL 0 - 0.1 06/02 Specimen Type: BLOOD Comment: Automated Differentia l Performed Ordering Provider: LEANN HAILE Report Released Date/Time: Jun 02, 2023 05:33 PM Reporting Lab: [facility] [address] Performing Lab: [facility] [address] [place] [facility] COMPREHE NSIVE METABOLI C PANEL+MG CREATININE [MASS/VOLU ME] IN SERUM OR PLASMA 1.0 mg/dL 0.7 - 1.2 06/02 Specimen Type: PLASMA No comment entered. Ordering Provider: LEANN HAILE Report Released Date/Time: Jun 02, 2023 05:33 PM Reporting Lab: [facility] [address] Performing Lab: [facility] [address] [place] [facility] COMPREHE NSIVE METABOLI C PANEL+MG UREA NITROGEN [MASS/VOLU ME] IN SERUM OR PLASMA 17 mg/dL 8 - 26 06/02 Specimen Type: PLASMA No comment entered. Ordering Provider: LEANN HAILE Report Released Date/Time: Jun 02, 2023 05:33 PM Reporting Lab: [facility] [address] Performing Lab: [facility] [address] [place] [facility] COMPREHE NSIVE METABOLI C PANEL+MG GLUCOSE [MASS/VOLU ME] IN SERUM OR PLASMA 119 mg/dL 70 - 100 06/02 H Specimen Type: PLASMA No comment entered. Ordering Provider: LEANN HAILE Report Released Date/Time: Jun 02, 2023 05:33 PM Reporting Lab: [facility] [address] Performing Lab: [facility] [address] [place] [facility] COMPREHE NSIVE METABOLI C PANEL+MG SODIUM [MOLES/VOL UME] IN SERUM OR PLASMA 141 mmol/L 136 - 145 06/02 Specimen Type: PLASMA No comment entered. Ordering Provider: LEANN HAILE Report Released Date/Time: Jun 02, 2023 05:33 PM Reporting Lab: [facility] [address] Performing Lab: [facility] [address] [place] [facility] COMPREHE NSIVE METABOLI C PANEL+MG POTASSIUM [MOLES/VOL UME] IN SERUM OR PLASMA 3.7 mmol/L 3.5 - 5.1 06/02 Specimen Type: PLASMA No comment entered. Ordering Provider: LEANN HAILE Report Released Date/Time: Jun 02, 2023 05:33 PM Reporting Lab: [facility] [address] Performing Lab: [facility] [address] [place] [facility] COMPREHE NSIVE METABOLI C PANEL+MG CHLORIDE [MOLES/VOL UME] IN SERUM OR PLASMA 105 mmol/L 98 - 107 06/02 Specimen Type: PLASMA No comment entered. Ordering Provider: LEANN HAILE Report Released Date/Time: Jun 02, 2023 05:33 PM Reporting Lab: [facility] [address] Performing Lab: [facility] [address] [place] [facility] COMPREHE NSIVE METABOLI C PANEL+MG CARBON DIOXIDE, TOTAL [MOLES/VOL UME] IN SERUM OR PLASMA 27 mmol/L 22 - 29 06/02 Specimen Type: PLASMA No comment entered. Ordering Provider: LEANN HAILE Report Released Date/Time: Jun 02, 2023 05:33 PM Reporting Lab: [facility] [address] Performing Lab: [facility] [address] [place] [facility] COMPREHE NSIVE METABOLI C PANEL+MG CALCIUM [MASS/VOLU ME] IN SERUM OR PLASMA 9.5 mg/dL 8.4 - 10.2 06/02 Specimen Type: PLASMA No comment entered. Ordering Provider: LEANN HAILE Report Released Date/Time: Jun 02, 2023 05:33 PM Reporting Lab: [facility] [address] Performing Lab: [facility] [phone] [place] [facility] COMPREHE NSIVE METABOLI C PANEL+MG PROTEIN [MASS/VOLU ME] IN SERUM OR PLASMA 7.8 g/dL 6.0 - 8.3 06/02 Specimen Type: PLASMA No comment entered. Ordering Provider: LEANN HAILE Report Released Date/Time: Jun 02, 2023 05:33 PM Reporting Lab: [facility] [address] Performing Lab: [facility] [address] [place] [facility] COMPREHE NSIVE METABOLI C PANEL+MG ALBUMIN [MASS/VOLU ME] IN SERUM OR PLASMA 4.4 g/dL 3.5 - 5.2 06/02 Specimen Type: PLASMA No comment entered. Ordering Provider: LEANN HAILE Report Released Date/Time: Jun 02, 2023 05:33 PM Reporting Lab: [facility] [address] Performing Lab: [facility] [address] [place] [facility] COMPREHE NSIVE METABOLI C PANEL+MG BILIRUBIN. TOTAL [MASS/VOLU ME] IN SERUM OR PLASMA 1.4 mg/dL 0.2 - 1.2 06/02 H Specimen Type: PLASMA No comment entered. Ordering Provider: LEANN HAILE Report Released Date/Time: Jun 02, 2023 05:33 PM Reporting Lab: [facility] [address] Performing Lab: [facility] [address] [place] [facility] COMPREHE NSIVE METABOLI C PANEL+MG MAGNESIUM [MASS/VOLU ME] IN SERUM OR PLASMA 2.0 mg/dL 1.6 - 2.6 06/02 Specimen Type: PLASMA No comment entered. Ordering Provider: LEANN HAILE Report Released Date/Time: Jun 02, 2023 05:33 PM Reporting Lab: [facility] [address] Performing Lab: [facility] [address] [place] [facility] COMPREHE NSIVE METABOLI C PANEL+MG ANION GAP IN SERUM OR PLASMA 9 mmol/L 5 - 15 06/02 Specimen Type: PLASMA No comment entered. Ordering Provider: LEANN HAILE Report Released Date/Time: Jun 02, 2023 05:33 PM Reporting Lab: [facility] [address] Performing Lab: [facility] [address] [place] [facility] COMPREHE NSIVE METABOLI C PANEL+MG ALKALINE PHOSPHATAS E [ENZYMATIC ACTIVITY/V OLUME] IN SERUM OR PLASMA 62 U/L 40 - 150 06/02 Specimen Type: PLASMA No comment entered. Ordering Provider: LEANN HAILE Report Released Date/Time: Jun 02, 2023 05:33 PM Reporting Lab: [facility] [address] Performing Lab: [facility] [address] [place] [facility] COMPREHE NSIVE METABOLI C PANEL+MG ALANINE AMINOTRANS FERASE [ENZYMATIC ACTIVITY/V OLUME] IN SERUM OR PLASMA 28 U/L <55 - 55 06/02 Specimen Type: PLASMA No comment entered. Ordering Provider: LEANN HAILE Report Released Date/Time: Jun 02, 2023 05:33 PM Reporting Lab: [facility] [address] Performing Lab: [facility] [address] [place] [facility] COMPREHE NSIVE METABOLI C PANEL+MG ASPARTATE AMINOTRANS FERASE [ENZYMATIC ACTIVITY/V OLUME] IN SERUM OR PLASMA 35 U/L <34 - 34 06/02 H Specimen Type: PLASMA No comment entered. Ordering Provider: LEANN HAILE Report Released Date/Time: Jun 02, 2023 05:33 PM Reporting Lab: [facility] [address] Performing Lab: [facility] [address] [facility] COMPREHE NSIVE METABOLI C PANEL+MG GLOMERULAR FILTRATION RATE/1.73 SQ M.PREDICTE D [VOLUME RATE/AREA] IN SERUM, PLASMA OR BLOOD BY CREATININE -BASED FORMULA (CKD-EPI 2020) 78 60 06/02 Specimen Type: PLASMA No comment entered. Ordering Provider: LEANN HAILE Report Released Date/Time: Jun 02, 2023 05:33 PM Reporting Lab: [facility] [address] Performing Lab: [facility] [address] [facility] COMPREHE NSIVE METABOLI C PANEL+MG BILIRUBIN. DIRECT [MASS/VOLU ME] IN SERUM OR PLASMA 0.4 mg/dL <0.5 - 0.5 06/02 Specimen Type: PLASMA No comment entered. Ordering Provider: LEANN HAILE Report Released Date/Time: Jun 02, 2023 05:33 PM Reporting Lab: [facility] [address] Performing Lab: [facility] [address] [facility] Vital Signs Combined list of inpatient and outpatient Vital Signs from Department of Defense and Veterans Affairs, ranging from 12 months to all on record, depending upon the facility. Vital Sign Value Date Comments Source SYSTOLIC BLOOD PRESSURE 128 08/27/2023 10:21:48 [facility] DIASTOLIC BLOOD PRESSURE 73 08/27/2023 10:21:48 [facility] PULSE OXIMETRY 98 08/27/2023 10:21:48 [place] [facility] WEIGHT 150.4 08/27/2023 10:21:48 [facility] BMI 24kg/m2 08/27/2023 10:21:48 [facility] [place] [facility] PAIN 2 08/27/2023 10:21[facility] TEMPERATURE 97.7 08/27/2023 10:21:48 [place] [facility] PULSE 81 08/27/2023 10:21:48 [facility] RESPIRATION 16 08/27/2023 10:21:48 [facility] SYSTOLIC BLOOD PRESSURE 149 06/02/2023 17:11:00 [facility] DIASTOLIC BLOOD PRESSURE 74 06/02/2023 17:11:00 [facility] TEMPERATURE 97.4 06/02/2023 17:11:00 [place] [facility] PULSE 64 06/02/2023 17:11:00 [facility] [place] [facility] RESPIRATION 16 06/02/2023 17:11:00 [facility] SYSTOLIC BLOOD PRESSURE 133 03/17/2023 11:03:57 [facility] DIASTOLIC BLOOD PRESSURE 73 03/17/2023 11:03:57 [facility] PULSE OXIMETRY 99% 03/17/2023 11:03:57 [place] [facility] WEIGHT 145 03/17/2023 11:03:57 [place] [facility] BMI 23kg/m2 03/17/2023 11:03:57 [facility] PAIN 0 03/17/2023 11:03:57 [facility] HEIGHT 66.5 03/17/2023 11:03:57 [facility] TEMPERATURE 98.1 03/17/2023 11:03:57 [facility] PULSE 70 03/17/2023 11:03:57 [facility] RESPIRATION 16 03/17/2023 11:03:57 [facility] Encounters Combined list of: 1) Encounters from [facility] facilities going back up to thelast 18 months. 2) Encounters from the Department of Defense facilities going back up to 280 months. Location Location Details Encounter Type Encounter Number Reason For Visit Attending Provider ADM Date DC Date Status Disposition Source [place] [facility] Outpatient Encounter [id number] SA MARKELL [place] VIPIN 09/14 [place] [facility] [place] [facility] OFF/OP EST SEPTEMBER X REQ PHY/QHP [id number] Diagnos is: ICD-10- CM H61.893 Other specifi ed disorde rs of externa l ear, bilater al
MEDFU,BAYA YBIN A 09/16 [place] [facility] [place] [facility] PSYCL/NRPS YC TST PHY/Q[place] [id number] Diagnos is: ICD-10- CM F03.A4 Unspeci fied dementi a, mild, with anxiety
NUNU ALVAREZ N 09/18 [place] [facility] IS [facility] OFFICE O/P EST LOW 20-29 MIN [id number] Diagnos is: ICD-10- CM M25.512 Pain in left shoulde r
ZHANNA PALACIO L 09/29 [facility] Outpatient Encounter [id number] 09/29 [facility] NRPSYC TST EVAL PHYS/QHP 1ST [id number] Diagnos is: ICD-10- CM G30.9 Alzheim er's disease , unspeci fied
NUNU ALVAREZ N 10/05 [facility] Outpatient Encounter [id number] JARRET DYER 11/02 [facility] OFFICE O/P EST HI 40-54 MIN [id number] Diagnos is: ICD-10- CM M54.59 Other low back pain
RAJESH GONZALEZ 11/03 [facility] Outpatient Encounter [id number] Diagnos is: ICD-10- CM Z71.89 Other specifi ed [facility] counsel ing<br/ > ZHANNA PALACIO L 12/02 [facility] Outpatient Encounter [id number] ZHANNA PALACIO L 12/02 [facility] Outpatient Encounter [id number] 12/28 [facility] Outpatient Encounter [id number] 01/15 [facility] [place] [facility] Outpatient Encounter [id number] 01/22 [facility] MTMS BY PHARM ADDL 15 MIN [id number] Diagnos is: ICD-10- CM Z00.8 Encount er for other general examina tion
SHELLY TUCKER SE 02/02 [facility] IMMUNIZATI ON ADMIN EACH ADD [id number] Diagnos is: ICD-10- CM Z23 Encount er for immuniz ation<b r/> CAPO AU L 02/02 [facility] Outpatient Encounter [id number] Carlitos WEATHERS 02/11 [facility] [place] [facility] Outpatient Encounter [id number] 02/18 [facility] OFFICE O/P EST HI 40-54 MIN [id number] Diagnos is: ICD-10- CM F03.90 Unsp dementi a, unsp severit y, without beh/psy ch/mood /anx
Mele PHAN 03/17 [facility] [place] [facility] Outpatient Encounter [id number] 03/17 [facility] [place] [facility] Outpatient Encounter [id number] 04/15 [facility] [place] [facility] OFFICE O/P EST HI 40-54 MIN [id number] Diagnos is: ICD-10- CM E78.5 Hyperli pidemia , unspeci fied
EMILIEH GHULAM EVERETT 04/16 [facility] [place] [facility] Outpatient Encounter [id number] 05/03 [facility] EXT ECG>7D<15D REV&INTERP J [id number] Diagnos is: ICD-10- CM R42 Dizzine ss and giddine ss
TINY STEVENS EY A 05/11 [facility] IMMUNIZATI ON ADMIN [id number] Diagnos is: ICD-10- CM Z23 Encount er for immuniz ation<b r/> CELESTINO VENTURA NE 05/18 [facility] OFFICE O/P EST LOW 20 MIN [id number] Diagnos is: ICD-10- CM H25.13 Age-rel ated nuclear catarac t, bilater al
MICKEY WESTBROOKIA 05/21 [facility] Outpatient Encounter [id number] TOMMY NUNEZ THERINE A 06/02 [facility] EMERGENCY DEPT VISIT MOD MDM [id number] Diagnos is: ICD-10- CM K30 Functio nal dyspeps ia
LAZARA,CON STANCE L 06/02 [facility] Outpatient Encounter [id number] ELVIA LICONA 07/05 [facility] Outpatient Encounter [id number] 07/10 [facility] EVOKED AUDITORY TST COMPLETE [id number] Diagnos is: ICD-10- CM H90.3 Sensori neural hearing loss, bilater al
ITZ STONE 07/13 [facility] Outpatient Encounter [id number] 07/26 [facility] Outpatient Encounter [id number] 07/26 [facility] [place] [facility] Outpatient Encounter [id number] 07/28 [facility] [place] [facility] Outpatient Encounter [id number] Diagnos is: ICD-10- CM G30.9 Alzheim er's disease , unspeci fied
EMILIE,H GHULAMMacho EVERETT 07/28 [facility] [place] [facility] Outpatient Encounter [id number] Carlitos HUTTON 08/09 [facility] [place] [facility] Outpatient Encounter [id number] 08/22 [facility] CONFORMITY EVALUATION [id number] Diagnos is: ICD-10- CM H90.3 Sensori neural hearing loss, bilater al
ITZ STONE 08/22 [facility] OFFICE O/P EST MOD 30 MIN [id number] Diagnos is: ICD-10- CM H25.9 Unspeci fied age-rel ated catarac t
GABRIELWANDY TorresNIKA 08/24 [facility] OFFICE O/P EST HI 40 MIN [id number] Diagnos is: ICD-10- CM E78.5 Hyperli pidemia , unspeci fied
EMILIE,H GHULAM EVERETT 08/26 [place] [facility] [place] [facility] Outpatient Encounter [id number] ELVIA LICONA 08/26 [place] [place] [facility] Outpatient Encounter [id number] 09/13 [facility] [place] [facility] Outpatient Encounter [id number] PARADMele GONSALEZ MARGUERITE 09/14 [facility] [place] [facility] Outpatient Encounter [id number] 09/19 [place] [facility] HEARING AID FITTING/CH ECKING [id number] Diagnos is: ICD-10- CM H93.13 Tinnbuthc s, elie al
Neha BUCHANAN 09/20 [place] [facility] Outpatient Encounter [id number] 11/03 [facility] [place] [facility] Outpatient Encounter [id number] 11/03 [facility] OFFICE O/P NEW MOD 45 MIN [id number] Diagnos is: ICD-10- CM Z71.84 Encount er for health [facility]'s counsel ing related to travel< br/> SHELLY TUCKER SE 11/14 [facility] TST EVAL PHYS/Q[place] [id number] Diagnos is: ICD-10- CM F03.A4 Unspeci fied dementi a, mild, with anxiety
NUNU ALVAREZ 01/24 [facility] Outpatient Encounter [id number] ENA BENEDICT 01/27 [facility] TST EVAL PHYS/QHP [facility] [id number] Diagnos is: ICD-10- CM F03.A4 Unspeci fied dementi a, mild, with anxiety
NUNU ALVAREZ 02/08 [facility] Social History Combined list of available smoking, tobacco, and other social history from Department of Defense and Veterans Affairs facilities. Social History Type Response Date Comment [facility] e Tobacco smoking status OHIS ID-TOBACCO NEVER USED 08/27/2023 [facility] History of tobacco use VA-TOBACCO NEVER USED 08/03/2022 [facility] History of tobacco use ID-TOBACCO NEVER USED 07/30/2021 [facility] History of tobacco use VA-TOBACCO NEVER USED 10/25/2020 [facility] Plan of Care List of future care activities from Department of Veterans Affairs facilities. Additional future care activities may be listed in the Assessment and Plan section. Date/Time Care Activity Care Activity Detail Facili ty 03/14/2024 AMBULATORY - SURGERY AMBULATORY - SURGERY [facility] 04/07/2024 AMBULATORY - MEDICINE AMBULATORY - MEDICI [facility] 06/02/2024 AMBULATORY - SURGERY AMBULATORY - SURGERY [facility]
--- OUTSIDE RECORDS SUMMARY | 2024-03-08 07:27 | XMS_ITS | Continuity of Care Document ---
Author Organization Z [facility] Address [address] [place] [address] Phone Care Team Providers Care Manager Dialysis Name Role Phone Sree Koroma MD Unavailable Unavailable Allergies, Adverse Reactions, Alerts Substance Reaction Status Criticality No Known allergies Medications Medication Instructions Dosage Effective Dates (start - stop) Status Comments LIPITOR (unknown strength) Not Available - Active Procedures Procedure Date Office/Outpatient Visit,Est, Mod 2011 X-Ray Exam Of Total Spine Advance Directives Directive Yes / No Effective Date File Name No Information Encounters Encounter Description Practice Location Reason(s) For Visit Diagnoses Date Provider Providers Copied on Encounter Z [facility], [address] [place] [address], [facility], [place] tel:[phone] [employer] No Information [address] Balbuena. [facility], [address], [address], [place], [id number] , [place]. tel:[phone] Office/Outpa tient Visit,Est, Mod Z [facility], [address] [place], [place] [address] [place] [address], [facility], tel:[phone] [employer] No Information [address] [facility], [address] [place] [address], [address], [place], [id number] , [place]. tel:[phone] Referring Provider: Ricky Mc rs [address] [place], [address]. tel:[phone] [facility], [address] [place], [place] [address] [address], [place], [address], [place] tel:[phone] [facility] Hypercholeste rolemia 2 Ludy Castellanos. [address] [place] [address] [address], [place], [place], [id number] , [place]. [phone] Family History Family Member Type Diagnosis Age At Onset Problem (finding) Problem (finding) Family history of raise d blood lipids Problem (finding) Family history of scoliosis deformity of spine Problem (finding) Family history of Heart disease Payers Payer name Insurance type Covered libertarian ID Authorethana tony(s) Medicare [id number] [facility] [id number] Social History Type Description Quantity Date Captured Comments Sex Male Smoking Status No Information Chief Complaint And Reason For Visit No Information Reason For Referral Reason For Referral No Information History Of Present Illness Encounter Date Complaint History Of Prese nt Illness No Information Functional Status Date Functional Assessmen t No Information Instructions Date Instruction Additional Infor mation No Information Assessments Type Assessment Date No Information Patient Care Teams Name Effective Dates (start - stop) Status Members No Information
--- OUTSIDE RECORDS SUMMARY | 2024-03-08 07:27 | XMS_ITS | Encounter Summary ---
[facility] Address [address] [place] [address] Care Team Providers Care Presentation Manager Name Role Phone Michael Francisco MD Primary Care Provider Encounter Details Date Type Department Care Team (Latest Contact Info) Description 10/16/1996 Orders Only Heaven Lema Social History Tobacco Use Types Packs/Day Years Used Date Smoking Tobacco: Never Assessed Sex and Gender Information Value Date Recorded Sex Assigned at Not on file Gender Identity Not on file Sexual Orientation Not on file documented as of this encounter Plan of Treatment Not on file documented as of this encounter Visit Diagnoses Not on filedocumented in this encounter Care Teams Presentation Manager Relationship Specialty [place] [address] [place] [address] PCP - General 01/16/16 documented as of this encounter
--- OUTSIDE RECORDS SUMMARY | 2024-03-08 07:27 | XMS_ITS | Continuity of Care Document ---
Author Organization [facility] Address [address] [address] [place] [address] Phone Care Team Providers Care Well Drill Operator Rotary Drill Name Role Phone Alyse Cole CRNA Unavailable Unavailable Allergies, Adverse Reactions, Alerts Substance Reaction Status Criticality pistachio nut Facial swelling Active No Informat ion Medications Medication Instructions Dosage Effective Dates (start - stop) Status Comments aspirin 81 mg chewable tablet chew 1 Tablet by oral route every day 81 MG - Active ezetimibe 10 mg tablet take 1 tablet by oral route every day 10 MG - Active Fish Oil 1,000 mg (120 mg-180 mg) capsule take 1 by Oral route every day 1 - Active rosuvastatin 20 mg tablet take 1 Tablet by oral route every day 20 MG - Active Procedures Procedure Date Colonoscopy Flex; W/remov Les- 21 Level Iv-surg Path Gross/micro 21 Advance Directives Directive Yes / No Effective Date File Name No Information Encounters Encounter Description Practice Location Reason(s) For Visit Diagnoses Date Provider Providers Copied on Encounter [facility], [address] [address], [place], [id number], [place] tel:[phone] Venessa [facility] No Information Douglas Cullen. [address] [facility], [place], [place], [id number] , [place]. tel:[phone] Referring Provider: Lucrecia Linder, [address] [facility] [address], [place], [address] . tel:[phone] [facility], [address] [address], [place], [id number], [place] tel:[phone] Venessa [facility] Colorectal polypsDiverticulosi s of colon without diverticulitisEncou nter for screening for malignant neoplasm of colonBenign neoplasm of rectumBenign neoplasm of sigmoid colonDvrtclos of lg int w/o perforation or abscess w/o bleedingBenign neoplasm of sigmoid colonBenign neoplasm of rectum 1 Jessica Singer. [address] [facility], [facility] [address], [place], [id number] , [place]. [phone] [facility], [address] [address], [place], [id number], [place] tel:[phone] [facility] No Information 1 Ozzy Waller. [address] [facility], [facility] [address], [place], [id number] , [place]. [phone] Family History Family Member Type Diagnosis Age At Onset No Information Immunizations Vaccine Date Status Comments influenza, high-dose seasona l, quadrivalent, .7mL dose, preservative free administered Note: [facility] bi-direct ional interface ; Source: Other Registry influenza, high dose seasona l, preservative-free administered Note: [facility] bi-direct ional interface ; Source: Other Registry influenza, high dose seasona l, preservative-free administered Note: [facility] bi-direct ional interface ; Source: Other Registry Engerix-B administered Note: [facility] bi-d irectional interface ; Source: Other Registry influenza, high dose seasona l, preservative-free administered Note: [facility] bi-direct ional interface ; Source: Other Registry typhoid Vi capsular polysaccharide vaccine administered Note: [facility] bi-dir ectional interface ; Source: Other Registry Prevnar 13 administered Note: [facility] bi-d irectional interface ; Source: Other Registry influenza, high dose seasona l, preservative-free administered Note: [facility] bi-direct ional interface ; Source: Other Registry zoster vaccine, live administered Note: [facility] bi-directional interface ; Source: Other Registry influenza, high dose seasona l, preservative-free administered Note: [facility] bi-direct ional interface ; Source: Other Registry tetanus and diphtheria toxoi ds, adsorbed, preservative free, for adult use (5 Lf of tetanus toxoid and 2 Lf of diphtheria toxoid) administered Note: [facility] C bi- directional interface ; Source: Other Registry influenza, high dose seasona l, preservative-free administered Note: [facility] bi-direct ional interface ; Source: Other Registry Pneumovax 23 administered Note: [facility] bi-d irectional interface ; Source: Other Registry Influenza, seasonal, injectable administe red Note: [facility] bi- directional interface ; Source: Other Registry Influenza, seasonal, injectable administe red Note: [facility] bi- directional interface ; Source: Other Registry typhoid vaccine, live, oral administered Note: [facility] bi-directional interface ; Source: Other Registry Novel [id number], all formulations administered Note: [facility] bi-direct ional interface ; Source: Other Registry Influenza, seasonal, injecta ble, preservative free administered Note: [facility] bi-direct ional interface ; Source: Other Registry Engerix-B administered Note: [facility] bi-d irectional interface ; Source: Other Registry Influenza, seasonal, injectable administe red Note: [facility] bi- directional interface ; Source: Other Registry Influenza, seasonal, injectable administe red Note: [facility] bi- directional interface ; Source: Other Registry Engerix-B administered Note: [facility] bi-d irectional interface ; Source: Other Registry tetanus toxoid, reduced diphtheria toxoid, and acellular pertussis vaccine, adsorbed administered Note: [facility] b i-directional interface ; Source: Other Registry Engerix-B administered Note: [facility] bi-d irectional interface ; Source: Other Registry Havrix administered Note: [facility] bi-d irectional interface ; Source: Other Registry Influenza, seasonal, injectable administe red Note: [facility] bi- directional interface ; Source: Other Registry Influenza, seasonal, injectable administe red Note: [facility] bi- directional interface ; Source: Other Registry typhoid vaccine, live, oral administered Note: [facility] bi-directional interface ; Source: Other Registry yellow fever vaccine administered Note: M [facility] bi-directional interface ; Source: Other Registry Havrix administered Note: [facility] bi-d irectional interface ; Source: Other Registry Influenza, seasonal, injectable administe red Note: [facility] bi- directional interface ; Source: Other Registry tetanus and diphtheria toxoi ds, adsorbed, preservative free, for adult use (2 Lf of tetanus toxoid and 2 Lf of diphtheria toxoid) administered Note: [facility] C bi- directional interface ; Source: Other Registry tetanus and diphtheria toxoi ds, adsorbed, preservative free, for adult use (2 Lf of tetanus toxoid and 2 Lf of diphtheria toxoid) administered Note: [facility] C bi- directional interface ; Source: Other Registry Payers Payer name Insurance type Covered green party ID Authoriza tion(s) Medicare NGS MB [id number] [facility] [id number] Social History Type Description Quantity Date Captured Comments Sex Male Smoking Status No Information Chief Complaint And Reason For Visit No Information Reason For Referral Reason For Referral No Information History Of Present Illness Encounter Date Complaint History Of Prese nt Illness No Information Functional Status Date Functional Assessmen t No Information Instructions Date Instruction Additional Infor mation Diverticulosis/Diverticulitis Re lated to Colorectal polyps Colon Polyps Related to Color ectal polyps Assessments Type Assessment Date No Information Patient Care Teams Name Effective Dates (start - stop) Status Members No Information
--- OUTSIDE RECORDS SUMMARY | 2024-03-08 07:27 | XMS_ITS | Encounter Summary ---
Author Organization [facility] Address [address] [place] [address] Care Team Providers Care Personnel Technician Name Role Phone Michael Francisco MD Primary Care Provider [phone] Encounter Details Date Type Department Care Team (Latest Contact Info) Description 11/10/1994 Orders Only [place] [address] [address], [place] [address] Social History Tobacco Use Types Packs/Day Years Used Date Smoking Tobacco: Never Assessed Sex and Gender Information Value Date Recorded Sex Assigned at Not on file Gender Identity Not on file Sexual Orientation Not on file documented as of this encounter Plan of Treatment Not on file documented as of this encounter Visit Diagnoses Not on filedocumented in this encounter Care Teams Personnel Technician Relationship Specialty [place] [address] [place] [address] PCP - General 01/16/16 documented as of this encounter
--- OUTSIDE RECORDS SUMMARY | 2024-03-08 07:27 | XMS_ITS | Clinical Summary ---
Author Organization [facility] Address [address] [place] [address] Care Team Providers Care Sap Consultant Name Role Phone Michael Francisco MD Primary Care Provider [phone] Source Comments You are receiving this document as you are listed as the primary care provider,follow-up provider, or the patient has been referred to you for consultation.This is in compliance with the Medicare andMedicaid EHR Incentive Program,which states Providers who transition their patient to another setting of careor provider of care or refers their patient to another provider of care shouldprovide summary care record for each transition of care or referral. [employer] Allergies Active Allergy Reactions Criticality Noted Date Comments Other 07/26/2008 Licha, PN: LW Other1: -Jonny'carlitos Tamsulosin 07/05/2019 Medications Medication Sig Dispensed Refills Start Date End Date Status aspirin 81 MG tablet Take 1 tablet by mouth daily (every 24 hours). LW Comment:Unconfirmed Med Details 90 3 07/26/2008 Active atorvastatin (LIPITOR) 40 MG tablet Take 1 tablet by mouth daily (every 24 hours). LW Comment:Unconfirmed Med Details LW Addl Instr:Indicated for: High Cholesterol 90 3 07/26/2008 Active ezetimibe (ZETIA) 10 MG tablet Take 10 mg by mouth daily (every 24 hours). 10/16/2015 Active gabapentin (NEURONTIN) 300 MG capsule Take 1 capsule by mouth nightly. 90 capsule 1 11/08/2015 Active HYDROcodone-aceta minophen (NORCO) 5-325 MG tablet Take 1 Tablet by mouth every 6 hours as needed for Pain. Maximum acetaminophen dose is 4000 mg in 24 hours. 15 Tablet 07/05/2019 Active Additional Information Patient not taking.Reported on 07/13/2019 Active Problems Problem Noted Date Diagnosed Date Left cervical radiculopathy 10/26/2015 Family history of premature CAD 03/18/2010 Hyperlipidemia with target LDL less than 100 06/2009 Overview (01/23/2015): ICD 10 Lumbar radiculopathy 03/18/2010 Overview (01/06/2017): Lumbar radiculopathy (onset Feb 2010, MRI 03-07-10 Snoring 09/26/2007 Inguinal hernia Overview (02/14/2015): Epic Resolved Problems Problem Noted Date Diagnosed Date Resolved Date Hyperlipidemia with target LDL less than 130 03/18/2010 Overview (01/23/2015): ICD 10 Immunizations Name Administration Dates Next Due Flu Vac (3+ yrs) 04/14/2011, 0,05/31/2009, 008,05/06/2006,04/02/2005,04/19/2003 H1n1 Miv Sanofi 3+ Yr (Injected) 05/31/2009 HepA Adult (19+ yrs) 01/05/2007,03/26/2004 HepB Adult (Engerix-B, 20+ y rs, 3 dose series) 03/05/2008,01/26/2007,01/12/2007, 007 Influenza IIV3 (Trivalent) F luzooliva Highdose, 65+ Yrs (02318) 04/28/2012 Influenza Vaccine (3+years) ([facility]) 04/13/2007 PPSV23 (Pneumovax) 04/14/2011 Td 11/14/2001,02/07/1991 Tdap 01/05/2007 Typhoid (Vivotif, Oral) 05/31/2009,03/26/2004 Varicella 05/03/1998(Deferred: Immune by Manjit ellis) YF (Yellow Fever) 03/26/2004 Family History Medical History Relation Name Comments Hyperlipidemia Father Hyperlipidemia Mother Coronary Artery Disease Brother 3 Hyperlipidemia Brother 4 Hyperlipidemia Brother 5 Scoliosis Brother 6 Hyperlipidemia Sister 6 Hyperlipidemia Sister 7 Hyperlipidemia Sister 8 Hyperlipidemia Sister 9 Hyperlipidemia Sister 10 Coronary Artery Disease Sister 11 Scoliosis Sister 12 Asthma Son 4 Relation Name Status Comments Father (Age 76) Mother (Age 85) Brother 1 Alive Brother 2 Alive Brother 3 Brother 4 Brother 5 Brother 6 Daughter 1 Alive Daughter 2 Alive Sister 1 Alive Sister 2 Alive Sister 3 Alive Sister 4 Alive Sister 5 Alive Sister 6 Sister 7 Sister 8 Sister 9 Sister 10 Sister 11 Sister 12 Son 1 Alive Son 2 Alive Son 3 Alive Son 4 Social History Tobacco Use Types Packs/Day Years Used Date Smoking Tobacco: Never Smokeless Tobacco: Never Alcohol Use Standard Drinks/Week Comments Yes 0 (1 standard drink = 0.6 oz pur e alcohol) 3 glasses wine/week Sex and Gender Information Value Date Recorded Sex Assigned at Not on file Gender Identity Not on file Sexual Orientation Not on file Last Filed Vital Signs Vital Sign Reading Time Taken Comments Blood Pressure 140/72 07/05/2019 11:53 AM BEAM HOUSE INSPECTOR Pulse 54 07/05/2019 11:53 AM BEAM HOUSE INSPECTOR Temperature 36.6 ??C (97.8 ??F) 07/05/2019 11:[address] Respiratory Rate 14 07/05/2019 11:53 AM BEAM HOUSE INSPECTOR Oxygen Saturation 100% 07/05/2019 11:53 AM BEAM HOUSE INSPECTOR Inhaled Oxygen Concentration - - Weight 70.3 kg (155 lb) 04/16/2021 9:53 AM BEAM HOUSE INSPECTOR Height 172.7 cm (5' 8) 04/16/2021 9:53 AM BEAM HOUSE INSPECTOR Body Mass Index 23.57 04/16/2021 9:53 AM BEAM HOUSE INSPECTOR Plan of Treatment Health Maintenance Due Date Last Done Comments Hep C Screening (Preventive Services) 1945 Medicare Annual Wellness Visit 1945 HepB (3) 04/30/2008 03/05/2008, 01/15, 01/12/2007, Additional history exists Zoster/Shingles (2 of 3) 05/12/2013 03/17/2013 Colonoscopy 12/06/2016 12/06/2006 RSV (1 - 1-dose 75+ series) 2021 DTaP/Tdap/Td (3 - Tdap) 03/17/2023 03/17/20 13, 01/05/2007, 11/14/2001, Additional history exists COVID-19 Vaccine ( season) 2024 03/25/2021, 07/19/2020 Influenza (#1) 2024 2021, 02/15, 02/27/2019, Additional history exists HepA Aged Out 01/05/2007, 03/26/2004 No lo nger eligible based on patient's age to complete this topic Cholesterol Discontinued 04/13/2011, 05/2010, 03/18/2010, Additional history exists Pneumococcal 65+ Yrs Completed 08/19/2016, 04/14/20 11 Hib Aged Out No longer eligi ble based on patient's age to complete this topic IPV (Polio) Aged Out No longer eligi ble based on patient's age to complete this topic RSV Aged Out No longer eligi ble based on patient's age to complete this topic MCV4 Aged Out No longer eligi ble based on patient's age to complete this topic Procedures Procedure Name Priority Date/Time Associated Diagnosis Comments LIPID PANEL & DIRECT LDL (IF NEEDED) Routine 04/13/2011 9:02 AM BEAM HOUSE INSPECTOR Hyperlipidemia LDL goal < 100 COLONOSCOPY 12/06/2006 12:00 AM CDT from Last 3 Months or Most Recently Relevant to Health Maintenance Results * (ABNORMAL) LIPID PANEL AND DIRECT LDL(IF NEEDED) (04/13/2011 9:02 AM BEAM HOUSE INSPECTOR) Cholesterol 213(H) 0 - 199 mg/dl [facility] Triglyceride 78 0 - 149 mg/dl [facility] HDL 46 >40 mg/dl [facility] LDL, Calc. 151(H) 0 - 129 mg/dl [facility] Hours Fasting 12 hours [facility] 04/13/2011 9:02 AM BEAM HOUSE INSPECTOR 04/13/2011 9:27 AM BEAM HOUSE INSPECTOR Bryan Esteban MD LAB_1 [facility] [address] [address] * COLONOSCOPY (12/06/2006 12:00 AM CDT) Narrative 12/06/2006 12:00 AM CDT Ordered by an unspecified provider. Transcriptions Solitario Bryant - 12/06/2006 12:00 AM CDT Physician Unknown DUMMY/OTHER/AR from Last 3 Months or Most Recently Relevant to Health Maintenance Advance Directives * Full Code (Latest Code Status on File) Date Activated Date Inactivated Comments 07/05/2019 9:49 AM 07/05/2019 2:29 PM Full code in effect for 30 days * No Code Status Date Activated Date Inactivated Comments 12/14/2003 1:18 PM 12/14/2003 1:18 PM Care Teams Sap Consultant Relationship Specialty [place] [address] [place] [address] PCP - General 01/16/16
--- OUTSIDE RECORDS SUMMARY | 2024-03-08 07:27 | XMS_ITS | Encounter Summary ---
[facility] Address [address] [place] [address] Care Team Providers Care Carbon Sequestration Plant Manager Name Role Phone Michael Francisco MD Primary Care Provider Encounter Details Date Type Department Care Team (Late st Contact Info) Description 02/08/1997 Orders Only [facility] Sree Douglas MD [facility] [address] [place] [address] Social History Tobacco Use Types Packs/Day Years Used Date Smoking Tobacco: Never Assessed Sex and Gender Information Value Date Recorded Sex Assigned at Not on file Gender Identity Not on file Sexual Orientation Not on file documented as of this encounter Plan of Treatment Not on file documented as of this encounter Visit Diagnoses Not on filedocumented in this encounter Care Teams Carbon Sequestration Plant Manager Relationship Specialty [place] [address] [place] [address] PCP - General 01/16/16 documented as of this encounter
--- OUTSIDE RECORDS SUMMARY | 2024-03-08 07:27 | XMS_ITS | Encounter Summary ---
[facility] Address [address] [place] [address] Care Team Providers Care Patients Transporter Name Role Phone Michael Francisco MD Primary Care Provider [phone] Encounter Details Date Type Department Care Team (Late st Contact Info) Description 09/24/1995 Orders Only [facility] Sree Dogulas MD [facility] [address] [place] [address] Social History Tobacco Use Types Packs/Day Years Used Date Smoking Tobacco: Never Assessed Sex and Gender Information Value Date Recorded Sex Assigned at Not on file Gender Identity Not on file Sexual Orientation Not on file documented as of this encounter Plan of Treatment Not on file documented as of this encounter Visit Diagnoses Not on filedocumented in this encounter Care Teams Patients Transporter Relationship Specialty [place] [address] [place] [address] PCP - General 01/16/16 documented as of this encounter
--- OUTSIDE RECORDS SUMMARY | 2024-03-08 07:27 | XMS_ITS | Encounter Summary ---
[facility] Address [address] [place] [address] Care Team Providers Care Post Hole Digger Name Role Phone Michael Francisco MD Primary Care Provider Encounter Details Date Type Department Care Team (Late st Contact Info) Description 11/01/[address] [facility] Sree Douglas MD [facility] [address] [place] [address] Social History Tobacco Use Types Packs/Day Years Used Date Smoking Tobacco: Never Assessed Sex and Gender Information Value Date Recorded Sex Assigned at Not on file Gender Identity Not on file Sexual Orientation Not on file documented as of this encounter Plan of Treatment Not on file documented as of this encounter Visit Diagnoses Not on filedocumented in this encounter Care Teams Post Hole Digger Relationship Specialty [place] [address] [place] [address] PCP - General 01/16/16 documented as of this encounter
--- OUTSIDE RECORDS SUMMARY | 2024-03-08 07:27 | XMS_ITS | Encounter Summary ---
Author Organization [facility] Address [address] [place] [address] Care Team Providers Care Rand Tacker Name Role Phone Michael Francisco MD Primary Care Provider [phone] Encounter Details Date Type Department Care Team (Late st Contact Info) Description 12/06/2006 Consent for Procedure/Treatme [facility] [address] [place] [address] Solitario Bryant MD [facility] Informed Consent Social History Tobacco Use Types Packs/Day Years Used Date Smoking Tobacco: Never Alcohol Use Standard Drinks/Week Comments Not Asked 0 (1 standard drink = 0.6 oz pur e alcohol) Sex and Gender Information Value Date Recorded Sex Assigned at Not on file Gender Identity Not on file Sexual Orientation Not on file documented as of this encounter Progress Notes * Solitario Bryant - 12/06/2006 12:00 AM CDT documented in this encounter Plan of Treatment Not on file documented as of this encounter Visit Diagnoses Not on filedocumented in this encounter Care Teams Rand Tacker Relationship Specialty [place] [address] [place] [address] PCP - General 01/16/16 documented as of this encounter
--- OUTSIDE RECORDS SUMMARY | 2024-03-08 07:27 | XMS_ITS | Encounter Summary ---
[facility] Address [address] [place] [address] Care Team Providers Care Farmer Vegetable Name Role Phone Michael Francisco MD Primary Care Provider [phone] Encounter Details Date Type Department Care Team (Latest Contact Info) Description 04/19/1996 Orders Only Ezio Greene MD [address] [facility] [address] Social History Tobacco Use Types Packs/Day Years Used Date Smoking Tobacco: Never Assessed Sex and Gender Information Value Date Recorded Sex Assigned at Not on file Gender Identity Not on file Sexual Orientation Not on file documented as of this encounter Plan of Treatment Not on file documented as of this encounter Visit Diagnoses Not on filedocumented in this encounter Care Teams Farmer Vegetable Relationship Specialty [place] [address] [place] [address] PCP - General 01/16/16 documented as of this encounter
--- OUTSIDE RECORDS SUMMARY | 2024-03-08 07:27 | XMS_ITS | Encounter Summary ---
Author [facility] Address [address] [place] [address] Care Team Providers Care Website Designer Name Role Phone Michael Francisco MD Primary Care Provider [phone] Encounter Details Date Type Department Care Team (Late st Contact Info) Description 11/05/1994 Orders Only [facility] Sree Douglas MD [facility] [address] [place] [address] Social History Tobacco Use Types Packs/Day Years Used Date Smoking Tobacco: Never Assessed Sex and Gender Information Value Date Recorded Sex Assigned at Not on file Gender Identity Not on file Sexual Orientation Not on file documented as of this encounter Plan of Treatment Not on file documented as of this encounter Visit Diagnoses Not on filedocumented in this encounter Care Teams Website Designer Relationship Specialty [place] [address] [place] [address] PCP - General 01/16/16 documented as of this encounter
== END 2024-02-29 07:31 | disposition home or self-care (01) ==
LOC: NFLDREF 03-08 07:24
PROVIDERS: PCP Family Medicine; Referring Provider Family Medicine; Visit Provider Internal Medicine Nephrology
DX: N20.0 Calculus of kidney (principal)
CPT/HCPCS: 82340; 82436; 82507; 83735; 83945; 83986; 84105; 84133; 84300; 84392; 84560

== ENCOUNTER 2025-03-13 13:57 | Outpatient (CLI) | payer MEDICARE, BC, SELFPAY ==
--- NOTE | 2025-03-13 14:00 | CRLHL7_ITS ---
For Patients: As a result of the Century Cures Act, medical imaging exams and procedure reports are released immediately into your electronic medical record. You may view this report before your referring provider. If you have questions, please contact your health care provider. Indication: Flank pain Technique: Noncontrast CT abdomen and pelvis Please note that all CT scans at this facility use dose modulation, iterative reconstruction, and/or weight-based dosing when appropriate to reduce radiation dose to as low as reasonably achievable. Comparison: 06/05/2020 Findings: Linear subsegmental atelectasis or scarring noted within the right lower lobe. No pleural effusion. Multiple intrahepatic cysts again noted measuring up to 3.0 cm. Gallbladder is incompletely distended. Spleen is normal. Normal pancreas. Adrenal glands are normal. Atherosclerotic disease. Scoliotic deformity. Multiple stones are present within the kidneys bilaterally measuring up to 6.8 millimeters on the right and 1.2 cm on the left. No perinephric stranding or hydronephrosis. No ureteral stone or hydroureter. Bladder is normal. Prostate calcifications are present. Sigmoid diverticulosis. No bowel obstruction, free air, free fluid or adenopathy. Right hydrocele. Disc space narrowing and spurring on the right at L5-S1 and on the left at L2-3. No vertebral body compression fracture. Impression: Bilateral nonobstructing nephrolithiasis. Sigmoid diverticulosis. Multiple intrahepatic cysts. Please note that all CT scans at this facility use dose modulation, iterative reconstruction, and/or weight-based dosing when appropriate to reduce radiation dose to as low as reasonably achievable. Dictated by Jacob Servin MD @ 03/14/2025 9:06:28 AM (Electronically Signed)
== END 2025-03-13 13:58 | disposition home or self-care (01) ==
LOC: CT 13:57
PROVIDERS: Visit Provider Internal Medicine Nephrology
DX: R10.9 Unspecified abdominal pain (principal); N20.0 Calculus of kidney; K57.30 Diverticulosis of large intestine without perforation or abscess without bleeding; K76.89 Other specified diseases of liver
CPT/HCPCS: 74176